=== PATIENT | male | born 1990 | race African-American/Black ===

== ENCOUNTER 2016-08-24 16:19 | Emergency (ER) | payer SELFPAY ==
[2016-08-24 16:26] VITALS: BMI 18.1
--- NOTE | 2016-08-24 16:58 | PDOC ---
History of Present Illness - General Chief Complaint: Chest Pain Stated Complaint: CHEST PAIN Time Seen by Provider: 08/24/16 16:55 History Source: Patient Exam Limitations: No Limitations - History of Present Illness Initial Comments: CHIEF COMPLAINT: 26 y/o afebrile male with PMH asthma c/o chest pain since this afternoon. HISTORY OF PRESENT ILLNESS: The patient states he was smoking marijuana and doing dips in the park when his chest started hurting. He states it hurt in the front and rates the pain a 5/10. He states since that time the pain has decreased to a 3/10. He has never had chest pain in the past. He denies LOC, f /c, dizziness, BARNETT, neck pain, changes in vision/hearing, cough, hemoptysis, SOB , n/v/d, pain with inspiration, abdominal pain, back pain, and all other symptoms. Vital signs on arrival are within normal limits. REVIEW OF SYSTEMS: GENERAL/CONSTITUTIONAL: No fever/chills. No weakness. No weight change. HEAD, EYES, EARS, NOSE AND THROAT: No change in vision. No ear pain or discharge. No sore throat. CARDIOVASCULAR: +chest pain. No shortness of breath. RESPIRATORY: No cough, wheezing, or hemoptysis. GASTROINTESTINAL: No abd pain, nausea, vomiting, diarrhea. GENITOURINARY: No dysuria, frequency, or change in urination. MUSCULOSKELETAL: No joint or muscle swelling or pain. No neck or back pain. SKIN: No rash or easy bruising. NEUROLOGIC: No headache, vertigo, loss of consciousness, or loss of sensation. PHYSICAL EXAM: GENERAL: The patient is awake, alert, and fully oriented, in no acute distress. He is tall and thin, ambulatory, well appearing, in NAD or obvious discomfort. HEAD: Normal with no signs of trauma. ENT: Pupils equal, round and reactive to light, extraocular movements intact, sclera anicteric, conjunctiva clear. Neck supple. LUNGS: Clear to auscultation bilaterally. Normal excursion. No respiratory distress or use of accessory muscles. CV: RRR, S1/S2, no MRG. Cap refill < 2 sec. CHEST WALL: No reproducible chest wall pain with palpation. ABDOMEN: Soft, non-distended, non-tender even to deep palpation, no hepatomegaly or splenomegaly, no masses. EXTREMITIES: Normal range of motion, no edema. NEUROLOGICAL: Normal speech, normal gait. CN II-XII grossly intact. PSYCH: Normal mood, normal affect. SKIN: Warm, dry, normal turgor, no rashes or lesions noted. Past History - Past Medical History Allergies/Adverse Reactions: Allergies Allergy/AdvReac Type Severity Reaction Status Date / Time shellfish derived Allergy Verified 08/24/16 16:26 Asthma: Yes - Psycho/Social/Smoking Cessation Hx Anxiety: No Suicidal Ideation: No Smoking History: Current every day smoker Number of Cigarettes Smoked Daily: 5 Information on smoking cessation initiated: Yes 'Breaking Loose' booklet given: 08/24/16 Hx Alcohol Use: No Drug/Substance Use Hx: No Substance Use Type: None *Physical Exam - Vital Signs Last Vital Signs Temp Pulse Resp BP Pulse Ox 98.7 F 56 L 16 110/70 100 08/24/16 19:45 08/24/16 19:45 08/24/16 19:45 08/24/16 19:45 08/24/16 19:45 Heart Score/ECG Review - ECG Intrepretation Comment:: Twelve-lead EKG was performed and reviewed by Dr. Phipps. There is normal sinus rhythm with a normal rate. The axis is normal. The intervals are normal. Slight suspicion for Brugata Syndrome. Impression: Borderline twelve-lead EKG ED Treatment Course - LABORATORY CBC & Chemistry Diagram: 08/24/16 17:18 08/24/16 17:18 - ADDITIONAL ORDERS Additional order review: 08/24/16 17:18 RBC 4.94 MCV 92.3 MCHC 33.2 RDW 13.0 MPV 8.6 Neutrophils % 72.8 Lymphocytes % 16.9 Monocytes % 8.9 Eosinophils % 0.2 Basophils % 1.2 - RADIOLOGY Radiology Studies Ordered: Category Date Time Status CHEST PA & LAT [RAD] Stat Radiology 08/24/16 17:17 Completed Medical Decision Making - Medical Decision Making A/P: 26 y/o afebrile male with chest pain today. Plan is as follows: 1. EKG 2. CXR 3. Labs EKG suspicious for Brugada syndrome Labs unremarkable SPoke with Dr. Phipps and he suggested as long as everything else is normal, the patient can be discharged to home with Cardio follow up with instructions for no exercise until follow up. CXR IMPRESSION (wet read - discussed with Dr. Phipps): No acute pathology. No pneumothorax I am signing this patient out to my colleague: KADEN Brennan In brief, this patient is being seen in the ED for a chief complaint of: chest pain I have completed the initial assessment interview note and have ordered: labs, EKG, CXR I have reviewed the following results: labs Pending results are: official read of CXR, magnesium Plan for disposition is as follows: Most likely discharge with Cardio follow up *DC/Admit/Observation/Transfer Diagnosis at time of Disposition: Atypical chest pain - Discharge Dispostion Condition at time of disposition: Good - Referrals Referrals: Franc Baldwin MD [Staff Physician] - Call tomorrow - Patient Instructions Printed Discharge Instructions: DI for Atypical Chest Pain Additional Instructions: Discharge Instructions: -No physical exercise until you are seen by a [facility] -Please call Dr. Baldwin tomorrow to schedule follow up appointment -Return to the ER with any worsening or concerning symptoms.
[2016-08-24 17:34] LABS: BASOPHIL 1.2 % (0-2.0); EOSINOPHIL 0.2 % (0-4.5); MCH 30.6 pg (25.7-33.7); MCHC 33.2 g/dl (32.0-35.9); MEAN CELL VOLUME 92.3 fl (80-96); MEAN PLT VOLUME 8.6 fl (7.5-11.1); NEUTROPHILS 72.8 % (42.8-82.8); PLATELET COUNT 239 K/MM3 (134-434); WHITE BLOOD COUNT 7.1 K/mm3 (4.0-10.0)
[2016-08-24 18:21] LABS: ALBUMIN 4.1 g/dl (3.4-5.0); ANION GAP 7 (8-16); BILIRUBIN,TOTAL 0.5 mg/dL (0.2-1.0); CALCIUM 9.7 mg/dL (8.5-10.1); CO2 28 mmol/L (21-32); CREATININE 1.3 mg/dL (0.7-1.3); GLUCOSE,RANDOM 92 mg/dL (74-106); SGOT/AST 22 U/L (15-37); SGPT/ALT 26 U/L (12-78); TOT PROT 7.9 g/dl (6.4-8.2)
[2016-08-24 18:24] LABS: ALK PHOS 83 U/L (45-117); TROPONIN I < 0.02 ng/ml (0.00-0.05)
[2016-08-24 18:25] LABS: PLATELET ESTIMATE ADEQUATE (NORMAL)
[2016-08-24 19:46] VITALS: BP 110/70; PULSE 56; TEMP 98.7
--- NOTE | 2016-08-29 10:46 | EKG ---
Test Reason : Blood Pressure : / mmHG Vent. Rate : 067 BPM Atrial Rate : 067 BPM P-R Int : 186 ms QRS Dur : 102 ms QT Int : 382 ms P-R-T Axes : -17 -02 -17 degrees QTc Int : 403 ms NORMAL SINUS RHYTHM MINIMAL VOLTAGE CRITERIA FOR LVH, MAY BE NORMAL VARIANT BORDERLINE ECG NO PREVIOUS ECGS AVAILABLE Confirmed by SARAH VELASCO MD ([id number]) on 08/29/2016 10:46:17 AM Referred By: Confirmed By:SARAH VELASCO MD
== END 2016-08-24 20:05 | disposition home or self-care (01) ==
LOC: JER 16:19
DX: R07.89 Other chest pain (principal); J45.909 Unspecified asthma, uncomplicated; F17.210 Nicotine dependence, cigarettes, uncomplicated
CPT/HCPCS: 36415; 71020-TC; 80053; 82550; 83735; 84484; 85025; 93005; 93010; 99283-25

== ENCOUNTER 2021-11-18 05:41 | Emergency (ER) | payer SELFPAY ==
[2021-11-18 05:59] VITALS: BP 120/74; PULSE 58; RESP 18; TEMP 97.5; BMI 20.5
== END 2021-11-18 08:35 | disposition home or self-care (01) ==
LOC: JER 05:41 → JERFT 05:41
DX: R09.81 Nasal congestion (principal)
CPT/HCPCS: 0241U-QW; 71046-TC-FY; 93005; 93010; 99285-25